=== PATIENT | male | born 1945 | race Caucasian/White ===

== ENCOUNTER 2016-12-07 00:26 | Inpatient (IN) ==
--- NOTE | 2016-12-07 01:00 | History & Physical Report ---
<Abdullahi Pfeiffer - Last Filed: 12/07/16 00:55> History of Present Illness Date: 12/07/16 Chief complaint: abdomen pain HPI: This is a 71 y/o male with 2 day history of generalized abdomen pain that eventually settled on his right lower quadrant. The patient had nausea without emesis. Initially thought due to muscle strain after cleaning out the grass from lawnmower. The patient has a history of atrial fibrillation and is currently taking xaralto for this The patient ultimately presented to the ED in [place] and a CT of the abdomen demonstrated appendicitis. The patient is now transferred to [facility] for surgical managment of this problem. Because of the atrial fibrillation and anticoagulation status surgery has asked that the patient be admitted onto a medical service with surgical consultation Review of Systems Review of systems: no headache, no change in vision, no sore throat, no troubles swallowing (hx of esophageal surgery with a pull up procedure for esohageal cancer). The patient has no chest pain. an occasional cough. no fever chills or sweats, no shortness of breath. Is very active and hunts frequently and able to performe well over 12 METS of activity without any cardiac symptoms. The pain in the abdomen as noted above. Last BM earlier today and described as normal. 12 point ROS otherwise neg x for outlined above. PFSH Medical History Updates: atrial fibrilllation, HTN, esophageal cancer (surgery and chemo), Surgical History: esophageal resection with gastric pull up procedure, right finger tendon surger, T and A, G tube placed and removed, iliostomy tube placed and removed. - Social History Smoking status: Former smoker Substance use type: does not use Alcohol intake: former Alcohol intake frequency: does not drink Housing: house Household members: significant other service: No Current occupational status: retired Current occupational exposures/hazards: No Does patient use chewing tobacco?: No Current residence: Apartment/Private Home Medications Home Medications Medication Instructions Recorded Confirmed Type Metoprolol Succinate 1 tab PO BID #0 03/26/15 12/07/16 History Rivaroxaban [Xarelto] 1 tab PO DAILY #0 03/26/15 12/07/16 History Acetaminophen 325 mg PO Q6H PRN 12/07/16 12/07/16 History Gabapentin [Gabapentin] 1 tab PO TID 12/07/16 12/07/16 History Magnesium Oxide [Magox 400] 1 tab PO DAILY 12/07/16 12/07/16 History Vitamin B Complex + C [Total B + C] 1 tab PO DAILY 12/07/16 12/07/16 History Allergies Allergy/AdvReac Type Severity Reaction Status Date / Time No Known Allergies Allergy Verified 12/07/16 00:56 Exam Telemetry Rhythm: A-fib - Constitutional Present: mild distress, well nourished, average body habitus, cooperative - Routine HEENT Exam Head: Present: normocephalic, atraumatic Eye: Present: EOMI, conjunctivae pink. Absent: scleral injection ENT: Present: mucous membranes dry - Routine Neck Exam Present: supple, full ROM - Routine Respiratory Exam Present: CTA bilaterally - Routine Cardiovascular Exam Present: irregularly irregular - Routine Abdominal Exam Comments: soft, tender right lower quadrant to palpation bowel sounds present exam per nursing - Routine Extremities Exam Present: no edema, full ROM - Routine Back/Spine/Pelvis Exam Back/Spine: Present: full ROM - Routine Skin Exam Present: intact - Routine Neurological Exam Present: alert, CN II-XII intact. Absent: motor deficit - Routine Psychiatric Exam Present: normal affect Results - Labs Labs: From outside facility WBC 8.5 hg 12.4 plt 132 na 139 k 4.4 bun 16 cr 1.1 - Imaging and Cardiology CT scan - abdomen Additional comments: outside facility, acute appendicitis without perf Assessment and Plan (1) Appendicitis Current visit: Yes Status: Acute 12/07/16 01:05 patient will be seen by surgery this am. on xaralto. 1/2 life of drug is around 12 hrs at most. less for younger. Would anticipate okay to do surgery in 24 hours after last dose. Defer to surgery and pharmacist discussion. zosyn. ivf, npo, repeat labs (2) Atrial fibrillation Current visit: Yes Status: Acute 12/07/16 01:07 rate controlled. check ekg. continue b be. hold anticoagulation acutely. restart anticoagulation when surgery approves. risk to benefit favors off anticoagulation at this time. obviously. (3) Hypertension Current visit: Yes Status: Acute 12/07/16 01:08 continue b be , hold norvasc, adjust as indicated. (4) History of esophageal cancer Current visit: Yes Status: Acute 12/07/16 01:08 to be aware of DVT Prophylaxis: SCD's GI Prophylaxis: Protonix Resuscitation Status: Full Code Hospital Course Summary Disclaimer: The visit summary below is not to be considered part of the above Progress Note. <JongCherise - Last Filed: 12/07/16 13:32> History of Present Illness Date: 12/07/16 [facility] Patient Stated Medical History Dental Problems Yes: a few cavities need crown Cardiac Arrhythmia Yes: AF Hypertension Yes Other GI Yes: Esophageal Cancer,current appendicitis Exam Vital Signs: Temperature 97.0 F 12/07/16 07:45 Pulse Rate 70 12/07/16 07:45 Respiratory Rate 14 12/07/16 07:45 Blood Pressure 151/87 H 12/07/16 07:45 Pulse Oximetry 98 12/07/16 07:45 Oxygen Delivery Method Room Air Height: 1.78 m Weight: 99.2 kg Results - Labs CBC & Chem 7: 12/07/16 01:22 12/07/16 01:22 Assessment and Plan (1) Appendicitis Current visit: Yes Status: Acute (2) Atrial fibrillation Current visit: Yes Status: Acute (3) Hypertension Current visit: Yes Status: Acute (4) History of esophageal cancer Current visit: Yes Status: Acute Assessment and Plan: 12/07/2016-Dr. Sunshine I reviewed the H&P above by Dr. Pfeiffer and agree. I've seen and examined the patient independently today. Please see my additions to the H&P. Chief complaint: Abdominal pain History of Present illness: The patient developed abdominal pain 3 nights ago with a mild twinge in the right lower quadrant. The pain slowly worsened until yesterday when it was more consistent and worse with coughing or moving. He had done a lot of yard work prior to the onset of the pain and he initially thought it was musculoskeletal. He was evaluated in an outlying emergency room and CT showed appendicitis without rupture. The patient was given Toradol and abdominal pain improved. He stated his pain was never worse than a 3 and is currently a 2. He denies any fevers, chills or sweats. He denies any nausea or vomiting. He states he is hungry. He is currently nothing by mouth. He denies any diarrhea but has had history of constipation The patient has history of chronic A. fib and is on Xarelto. Last Xarelto dose was yesterday morning at about 10 AM. He states he has not had any abnormal bleeding other than one episode of hemorrhoidal bleeding along time ago. Patient has history of esophageal cancer and states that he has regained all of his weight since his surgery and chemotherapy. Past medical history chronic A. fib for which she sees Dr. Vivi Garrett, hypertension, esophageal cancer for which he underwent surgery with esophageal resection and gastric pull-up procedure. His surgeon is Dr. Portillo and ONcologist is Dr Swanson. He also underwent chemotherapy. He has a Port-A-Cath placed. He had a G-tube placed and removed. He's had an ileostomy tube placed and removed. He's had right tendon surgery. Family history significant for father dying of liver failure possibly secondary to medications at age 82. His mother at age 88 and had dementia. The patient's father had coronary disease with stents and a valve replacement. He has a brother with atrial flutter. Social history: The patient is a former smoker and quit 1-1/2 years ago. Patient has history of alcoholism and quit on 1987. Medications and allergies reviewed. Comments review of systems: Has some chronic mild headaches and neck pain. He states his stools are somewhat frequent and mildly loose because he drinks lots of juice to prevent constipation. Otherwise comprehensive review of systems is negative other than the above in history of present illness. Physical exam: GEN-alert, oriented, no acute distress HEENT-anicteric, oropharynx is moist NECK-supple CV-irregularly irregular with controlled rate CHEST-clear to auscultation bilaterally ABD-soft, tender only in the right lower quadrant, no rebound, mild guarding, hypoactive bowel sounds -no Jacob EXT-no edema NEURO-no focal deficits SKIN-warm and dry and without rashes Impression Acute appendicitis without rupture on CAT scan. Right lower quadrant pain seems to be stable to improved. Chronic A. fib Chronic anticoagulation with Xarelto, last dose yesterday morning at approximately 10 AM Hypertension which is well controlled History of esophageal cancer with esophageal resection and gastric pull-up procedure, he is at increased risk for aspiration Plan Continue IV fluids, Zosyn, and surgical consult has been made. Nothing by mouth to continue until seen by surgeon. Continue PPI. Continue off of Xarelto for possible surgery. SCDs for DVT prophylaxis. Continue metoprolol for rate control and hypertension. The need to resume Norvasc as well. Repeat lab tomorrow. Hospital Course Summary Disclaimer: The visit summary below is not to be considered part of the above Progress Note.
[2016-12-07 01:01] VITALS: BMI 31.2
[2016-12-07] MEDS ORDERED: HYDROMORPHONE 2 MG/ML INJECTION IVP PRN (01:05)
[2016-12-07] MEDS ORDERED: ONDANSETRON 4 MG/2 ML INJECTION IVP PRN (01:05)
[2016-12-07] MEDS: NS 1,000 ML IV SCH ×2 (02:15→12:54)
[2016-12-07] MEDS: PIPERACILLIN/TAZOBACTAM 3.375 GM in NS 100 ML IV SCH ×4 (02:25→19:43)
[2016-12-07] MEDS: PANTOPRAZOLE 40 MG INJECTION IVP SCH (08:57)
--- NOTE | 2016-12-07 11:56 | XRay Report ---
Indication: pre op PROCEDURE: XR chest 1V: Encounter: Initial Comparison: April 16, 2015 Findings: Right IJ port catheter remains in place. Lungs appear clear. No pneumonia, pleural effusion or pneumothorax. The heart size is enlarged but unchanged. Mediastinal contours and pulmonary vascularity are normal. Impression: No acute cardiopulmonary disease. .
[2016-12-08] MEDS ORDERED: MELATONIN 5 MG TABLET PO PRN (00:11)
[2016-12-08] MEDS: PIPERACILLIN/TAZOBACTAM 3.375 GM in NS 100 ML IV SCH ×4 (01:34→18:24)
--- NOTE | 2016-12-08 07:49 | Consultation ---
DATE OF CONSULTATION 12/07/2016 CONSULTING PHYSICIAN Luis Garrett MD REQUESTING PHYSICIAN Dr. Cherise Sunshine REASON FOR CONSULTATION Appendicitis. IMPRESSION 1. Acute nonperforated appendicitis. 2. Anticoagulation with use of Xarelto 3. Atrial fibrillation. RECOMMENDATIONS 1. I do not think that Benjy is currently an operative candidate given his anticoagulation. I also do not think that he is in need of urgent operation because his white count has remained normal and his abdominal pain is minimal. 2. I think he would be best served by IV antibiotic treatment alone with 48 hours of IV antibiotics. He could then be switched to oral antibiotics and dismissed if he is stable. 3. Continue to hold Xarelto in case his clinical condition worsens and he does end up needing surgery. 4. Since I am not thinking of operation currently, I will start him on a regular diet and stop his IV fluids. HISTORY OF PRESENT ILLNESS Benjy is a 71-year-old male who is known to my partner, Dr. Jj. Dr. Jj had participated in the diagnosis of his esophageal cancer in March of 2015 and PEG tube placement in April of 2015. Benjy had been working in the yard earlier this week on Thursday and Thursday. He had been bending over to clean out the grass from the undersurface of the his lawnmower and had also been trimming brush and other yard chores. By he had developed some pain in his right side and he felt like he had possibly pulled a muscle. On Thursday he had gone fishing and he felt like something was "dinging me" on the right side. His symptoms persisted. He talked to one his friends about the abdominal pain since his friend had had prior appendicitis. The location of the pain had matched with the pain being located in the right lower quadrant near the iliac crest. Yesterday his pain had increased and the patient felt like it was more on the inside. The most his pain ever got up to was 2-3/10 in severity. Since he was concerned about appendicitis. he went to the emergency department and eventually a CT scan was performed due to the patient's concern. It did reveal periappendiceal inflammation and an inflamed appendix consistent with acute appendicitis. I had been contacted by the emergency department in [place], but the patient was noted to be on Xarelto and so it was felt that he was not an operative candidate and he was admitted to the hospitalist service. PAST MEDICAL HISTORY 1. Esophageal cancer - diagnosed March of 2015. He was treated with chemotherapy, radiation therapy, and [place] esophagectomy. His oncologist is Dr. Edson Swanson. 2. Atrial fibrillation - lead neurodiagnostic technologist Dr. Nain Moran. 3. Hypertension. 4. Neuropathy - chemotherapy induced. PAST SURGICAL HISTORY 1. Tonsillectomy and adenoidectomy. 2. Right finger tendon surgery. 3. Colonoscopy - approximately July of [address] Jj in [place]. 4. EGD with biopsies - 03/27/[address] Jj. Pathology had revealed adenocarcinoma. 5. Right internal jugular PowerPort placement - 04/10/[address] Jj. 6. EGD with PEG tube placement - 05/21/[address] Jj. 7. [place] esophagectomy by Dr. Juani Ceja and Dr. Blane Strong. 8. Attempted EGD - 10/2016- by Dr. Bob Portillo, in [place], [place]. Procedure was abandoned due to aspiration given the esophageal and gastric anatomy. ALLERGIES No known drug allergies. MEDICATIONS The patient's home medications were reviewed. See the EMR. FAMILY HISTORY The patient's father at 82 and had coronary artery disease and valvular heart disease. He reportedly of liver failure. The patient's mother is and of complications of Alzheimer's dementia. Sister at 56 of metastatic lung cancer. SOCIAL HISTORY The patient is but currently lives with his significant other of 16 years. He is a former smoker and smoked from age 25 up through 2014. He has not smoked since. He was a prior alcoholic but quit drinking 29-1/2 years ago on [employer]. He enjoys hunting and fishing. REVIEW OF SYSTEMS 10-point review of systems was negative except for history of present illness and the following: CARDIOVASCULAR: He does have a history of atrial fibrillation. MUSCULOSKELETAL: He reports chronic neck pain and shoulder pain. HEMATOLOGIC: He is on Xarelto PHYSICAL EXAM VITAL SIGNS: Temperature 97.4, pulse 82, blood pressure 161/98, respiratory rate 16, oxygen saturation 97% on room air. GENERAL: The patient is awake, alert, in no acute stress. HEENT: Sclerae clear. Extraocular muscles intact. NECK: Supple with a midline trachea. HEART: Irregularly irregular. LUNGS: Clear to auscultation bilaterally. ABDOMEN: Soft, minimally tender in the right lower quadrant. There is no guarding or rebound noted. Rovsing's sign was negative. EXTREMITIES: No clubbing, cyanosis or edema. NEURO: Cranial nerves II-XII are grossly intact. PSYCHIATRIC: Normal mood and affect. LABORATORY DATA White blood cell count this morning was 6.8 with 54.3% neutrophils. INR was 1.74. IMAGING CT scan of the abdomen and pelvis in [place] reportedly show a dilated and inflamed appendix with periappendiceal inflammation consistent with acute appendicitis. PATIENT EDUCATION I did discuss with Benjy the concern for operation on anticoagulation. I explained that I felt conservative management with IV antibiotics alone would be his best option. He will likely need interval appendectomy given the fact that he will remain on anticoagulation and any future episodes of appendicitis would also be in an anticoagulated state. He will likely need about three months to let this current inflammation resolve prior to interval appendectomy. His questions were answered. JORGE
[2016-12-08] MEDS ORDERED: SALINE FLUSH 10ml SYRINGE IV PRN (08:00)
[2016-12-08] MEDS: PANTOPRAZOLE 40 MG INJECTION IVP SCH (08:13)
[2016-12-08] MEDS: SALINE FLUSH 10ml SYRINGE IV PRN ×2 (13:03→18:25)
[2016-12-08 15:37] VITALS: BP 123/82; PULSE 69; RESP 16; TEMP 97.2; O2SAT 99
--- NOTE | 2016-12-08 18:50 | Discharge Instructions ---
Discharge Plan - Med Rec/Dispo Referrals/Follow Up: Adolfo Cardozo MD [Family Provider] - (In 1 week) Magno Jj MD [Physician] - 1 Week Prescriptions: New Amoxicillin/Potassium Clav [Amox-Clav 875-125 mg Tablet] 1 each PO BID #14 tablet Continue Gabapentin 1 tab PO TID Magnesium Oxide [Magox 400] 1 tab PO DAILY Rivaroxaban [Xarelto] 1 tab PO DAILY #0 Metoprolol Succinate 1 tab PO BID #0 Vitamin B Complex + C [Total B + C] 1 tab PO DAILY Acetaminophen 325 mg PO Q6H PRN PRN Reason: Pain Discharge Instructions/Outpatient Orders: Final Provider Discharge Instructions Location: Determined By Patient - Disposition 01 Discharged Home, Self-Care
--- NOTE | 2016-12-08 18:57 | Progress Note ---
DATE 12/08/2016 HISTORY The patient states that the right lower quadrant abdominal pain he had at the time of admission to the hospital has now gone away. He does not have any pain at all at this time. He is not using any oral analgesics. He is tolerating his diet well. He has been receiving intravenous Zosyn. PHYSICAL EXAMINATION VITAL SIGNS: Temperature is 97.2 degrees oral. Pulse is 69. Respiratory rate is 16. Blood pressure is 123/82. Oxygen saturation is 99% on room air. ABDOMEN: The patient does not have any right lower quadrant abdominal tenderness at this time. The abdomen is soft and nontender. LABORATORY DATA White blood cell count was 4500 with 2 bands today. IMPRESSION 1. Acute appendicitis which is responding to nonoperative treatment with intravenous Zosyn. 2. Anticoagulation with Xarelto. 3. Atrial fibrillation. RECOMMENDATIONS I think that it would be safe to transition the patient from intravenous antibiotic treatment to oral antibiotic treatment with something such as Augmentin 875/125 mg p.o. b.i.d. at this time and allow the patient to go home from the hospital. The patient can continue with outpatient antibiotic treatment with the Augmentin. I can see the patient for a followup office visit at [place] in a week to make sure that he does continue to respond to outpatient antibiotic treatment for the acute appendicitis. JORGE
--- NOTE | 2016-12-08 19:14 | Discharge Summary ---
Discharge Information Date of admission: 12/07/16 00:35 Attending Physician: Cherise Sunshine MD Primary care physician: Adolfo Cardozo MD Consults: 12/07/16 17:09 Physician Consult [CONS] Routine Consulting Provider: Luis Garrett Reason For Exam: appendicitis Ordering Provider has Notified Risk Control Analyst: Yes - Discharge Diagnosis (1) Appendicitis Status: Acute (2) Atrial fibrillation Status: Acute (3) Hypertension Status: Acute (4) History of esophageal cancer Status: Acute - Procedures Procedures: NONE - Laboratory Labs: 12/08/16 04:12 12/08/16 04:12 History of Present Illness HPI: This is a 71 y/o male with 2 day history of generalized abdomen pain that eventually settled on his right lower quadrant. The patient had nausea without emesis. Initially thought due to muscle strain after cleaning out the grass from lawnmower. The patient has a history of atrial fibrillation and is currently taking xaralto for this The patient ultimately presented to the ED in [place] and a CT of the abdomen demonstrated appendicitis. The patient is now transferred to [facility] for surgical managment of this problem. Because of the atrial fibrillation and anticoagulation status surgery has asked that the patient be admitted onto a medical service with surgical consultation Objective Vital signs: Temperature 97.2 F 12/08/16 15:36 Pulse Rate 69 12/08/16 15:36 Respiratory Rate 16 12/08/16 15:36 Blood Pressure 123/82 12/08/16 15:36 Pulse Oximetry 99 12/08/16 15:36 Oxygen Delivery Method Room Air Weight: 98.1 kg Comments: The patient is doing well today. He is alert and oriented 3. Chest is clear to auscultation. Cardiac vascular reveals a regular rate and rhythm. Abdomen is soft and nontender with positive bowel sounds. Extremities are free of edema. White count remains normal without bandemia. Basic metabolic profile is normal. Hospital Course This is a general summary of the patient's hospital course. For more details refer to the complete medical record. Hospital course: The patient was admitted on 12/07/[address] abdomen at outlying facility showed appendicitis. The patient was on Xarelto for history of A. fib. The patient was started on Zosyn and Xarelto was placed on hold. Dr. Garrett was consulted for surgical recommendations. Because of the patient's recent use of Xarelto, he was at increased risk for bleeding with surgical treatment of appendicitis. He recommended continuing Zosyn and staying off of anticoagulation. Fortunately, the patient's symptoms continued to improve and the patient was afebrile. White count remained normal. The patient's abdominal pain markedly improved. On the day prior to discharge the patient was allowed to eat and had a good appetite. Dr. Jj saw the patient for surgical recommendations today on 12/08/2016 and he felt that he was doing quite well with antibiotic treatment of appendicitis and felt he was stable for discharge to home on oral Augmentin for 1 more week. He stated that his Xarelto could be restarted. He plans to follow-up with patient in one week. The patient was discharged to home in stable condition with plans for follow-up in the next one week with Dr. Jj and Dr. Cardozo Discharge Plan - Med Rec/Dispo Referrals/Follow Up: Adolfo Cardozo MD [Family Provider] - (In 1 week) Magno Jj MD [Physician] - 1 Week [facility] Instructions: Appendicitis (GEN) Prescriptions: New Amoxicillin/Potassium Clav [Amox-Clav 875-125 mg Tablet] 1 each PO BID #14 tablet Continue Gabapentin 1 tab PO TID Magnesium Oxide [Magox 400] 1 tab PO DAILY Rivaroxaban [Xarelto] 1 tab PO DAILY #0 Metoprolol Succinate 1 tab PO BID #0 Vitamin B Complex + C [Total B + C] 1 tab PO DAILY Acetaminophen 325 mg PO Q6H PRN PRN Reason: Pain Discharge Instructions/Outpatient Orders: Final Provider Discharge Instructions Location: Determined By Patient - Disposition 01 Discharged Home, Self-Care
== END 2016-12-08 19:27 | disposition home or self-care (01) | DRG 395 ==
LOC: PREOBSVTOIN 00:34 → SRG 00:35
PROVIDERS: ADMIT Emergency Medicine; ATTEND Internal Medicine